=== PATIENT | female | born 1950 | race Caucasian/White ===

== ENCOUNTER 2020-02-13 08:09 | Emergency (ER) | payer MEDICARE ==
[~2020-02-13] VITALS: Ht 167.6 cm; Wt 59.0 kg
[2020-02-13] MEDS ORDERED: THYROXINE (08:27)
[2020-02-13] MEDS ORDERED: PREDNISOLONE ACE5 ML RT. EYE (08:27)
[2020-02-13] MEDS ORDERED: WELLBUTRIN 100100 MG PO (08:28)
[2020-02-13] MEDS ORDERED: CLONAZEPAM2 M1 PO (08:28)
[2020-02-13] MEDS ORDERED: PRILOSEC10 MG PO (08:28)
[2020-02-13] MEDS ORDERED: SUPER THERAVIT1 EACH PO (08:28)
[2020-02-13] MEDS ORDERED: VITAMIN B-121000 MC2 SUBLING (08:29)
[2020-02-13] MEDS ORDERED: CALCIUM500 MG PO (08:29)
[2020-02-13] MEDS ORDERED: CIPROFLOXIN HC2.5 M1 OPHTHALMIC (08:45)
[2020-02-13] MEDS ORDERED: PREDNISONE 20 M20 M1 PO (08:45)
[2020-02-13] MEDS ORDERED: TRIAMCINOLONE A15 G1 TP (08:45)
[2020-02-13 08:55] VITALS: BP 148/76
== END 2020-02-13 08:55 | disposition home or self-care (01) ==
LOC: M.ERS 08:09
DX: H10.9 Unspecified conjunctivitis (principal); L30.9 Dermatitis, unspecified; Z88.8 Allergy status to other drugs, medicaments and biological substances